=== PATIENT | female | born 1955 | race African-American/Black ===

== ENCOUNTER 2024-05-07 09:31 | Emergency (ER) | payer MEDICARE, MEDICAID ==
[~2024-05-07] VITALS: Ht 160 cm; Wt 59.0 kg
[~2024-05-07 09:31] MED LIST: AMLO5TAB4 PO; ASPI-1497 PO; ATOR80TA PO; BACL5TAB PO; CITA40TA69 PO; CLON0.1T PO; CLOP-31 MT; DOCU100T PO; INSU100V3; KEPP500 PO; LISI10TA26 PO; METF-414 PO; MOM PO; TICA90TA PO; TOPUD PO
[2024-05-07 09:38] VITALS: O2SAT 100
[2024-05-07] MEDS: ACETAMINOPHEN 325MG TABLET PO ONE (09:45)
[2024-05-07 15:10] VITALS: BP 128/64; PULSE 72; RESP 14; TEMP 36.55848; O2SAT 100
== END 2024-05-07 15:49 | disposition home or self-care (01) ==
LOC: ER 09:31
DX: S09.90XA Unspecified injury of head, initial encounter (principal); F41.9 Anxiety disorder, unspecified; Z88.0 Allergy status to penicillin; Z79.82 Long term (current) use of aspirin; Z79.899 Other long term (current) drug therapy; Z86.73 Personal history of transient ischemic attack (TIA), and cerebral infarction without residual deficits; W18.30XA Fall on same level, unspecified, initial encounter; Y93.89 Activity, other specified; Y92.89 Other specified places as the place of occurrence of the external cause; Y99.8 Other external cause status
CPT/HCPCS: 71045; 72128; 73030; 73120; 73562; 99291